=== PATIENT | male | born 1985 | race Caucasian/White ===

== ENCOUNTER 2019-09-28 05:45 | Emergency (ER) | payer SELFPAY ==
[~2019-09-28] VITALS: Ht 177.8 cm; Wt 84.4 kg
[2019-09-28 05:53] VITALS: BP 137/89
--- NOTE | 2019-09-28 05:55 | NUR ---
PT TAKEN TO BED 11
--- NOTE | 2019-09-28 06:04 | NUR ---
33M PT PRESENTS TO ED C/O RUQ, LUQ ABD PAIN THAT STARTED X 0000. STATES 10/10 PAIN. NO MEDS TAKEN. DENIES N/V/D. BOWEL SOUNDS NORMOACTIVE. RESPIRATIONS EVEN AND UNLABORED. ERMD MADE AWARE. PMHX: DENIES RX: DENIES NKA NEGATIVE FOR COVID SCREENING.
--- NOTE | 2019-09-28 06:18 | NUR ---
DR RUVALCABA AT BEDSIDE EVALUATING PATIENT.
[2019-09-28] MEDS ORDERED: MORPHINE SULFATE 4 MG/ML SYR IVP ONE (06:25)
[2019-09-28] MEDS ORDERED: ONDANSETRON 4 MG/2 ML VIAL IVP ONE (06:25)
[2019-09-28] MEDS ORDERED: NACL 0.9% 1,000 ML IV ONE (06:25)
--- NOTE | 2019-09-28 06:40 | NUR ---
LABS COLLECTED AND SENT TO LAB
--- NOTE | 2019-09-28 06:41 | NUR ---
PT MEDICATED WITH ZOFRAN AND MORPHINE VIA LT IV 18G. TOLERATED WELL. NADR
--- NOTE | 2019-09-28 06:55 | NUR ---
US AT BEDSIDE
[2019-09-28 07:01] LABS: BASOPHILS % (AUTO) 0.4 % (0.0-2.0); EOSINOPHILS # (AUTO) 0.1 K/uL (0-0.4); HEMATOCRIT 48.8 % (36-52); HEMOGLOBIN 17.2 g/dL (12.0-18.0); LYMPHOCYTES # (AUTO) 1.5 K/uL (2.0-11.5); LYMPHOCYTES % (AUTO) 20.2 % (20.5-51.1); MEAN CORPUSCULAR HEMOGLOBIN 31 pg (27-31); MEAN CORPUSCULAR HGB CONC 35 g/dL (33-37); MEAN CORPUSCULAR VOLUME 89.2 fL (80-94); MONOCYTES # (AUTO) 0.7 K/uL (0.8-1.0); MONOCYTES % (AUTO) 8.9 % (1.7-9.3); NEUTROPHILS # (AUTO) 5.1 K/uL (1.8-7.7); NEUTROPHILS % (AUTO) 69.5 % (42.2-75.2); PLATELET COUNT (AUTO) 173 K/uL (140-450); RED BLOOD CELL COUNT(AUTO) 5.47 MIL/uL (4.20-6.10); RED CELL DISTRIBUTION WIDTH 12.9 % (11.6-13.7); WHITE BLOOD COUNT (AUTO) 7.4 K/uL (4.8-10.8)
--- NOTE | 2019-09-28 07:09 | NUR ---
RECEIVED REPORT FROM PARKER MERCEDES FOR CONTINUATION OF CARE.
[2019-09-28 07:12] LABS: ALBUMIN 4.3 g/dL (3.4-5.0); CREATININE 0.9 mg/dL (0.6-1.3); TOTAL BILIRUBIN 1.4 mg/dL (0.0-1.0)
[2019-09-28 07:13] LABS: APPEARANCE,URINE CLEAR (CLEAR); BILIRUBIN,URINE NEGATIVE (NEGATIVE); BLOOD, URINE NEGATIVE (NEGATIVE); COLOR,URINE YELLOW (YELLOW); LEUKOCYTE ESTERASE ,URINE NEGATIVE (NEGATIVE); NITRITE, URINE NEGATIVE (NEGATIVE); PH,URINE 6.5 (5.0-9.0); UGLUCOSE NEGATIVE (NEGATIVE)
--- NOTE | 2019-09-28 08:05 | NUR ---
PT RESTING IN BED AT LOWEST POSITION, HOB ELEVATED , SIDE RAILS X1.
[2019-09-28 08:10] VITALS: BP 137/89
--- NOTE | 2019-09-28 08:11 | NUR ---
Patient discharged with v/s stable. Written and verbal after care instructions given and explained. Patient alert, oriented and verbalized understanding of instructions. Ambulatory with steady gait. All questions addressed prior to discharge. ID band removed. Patient advised to follow up with PMD. Rx of PEPCID given. Patient educated on indication of medication including possible reaction and side effects. Opportunity to ask questions provided and answered. PT STATES HE HAS A RIDE PICKING HIM UP.
== END 2019-09-28 08:11 | disposition home or self-care (01) ==
LOC: MED 05:45
DX: K80.20 Calculus of gallbladder without cholecystitis without obstruction (principal)
CPT/HCPCS: 36415; 76705; 80053; 81003; 82150; 83690; 85025; 96374; 96375; 99284; J2270; J2405; J7030; Q0092